=== PATIENT | female | born 1950 | race Caucasian/White ===

== ENCOUNTER 2016-09-29 14:47 | Inpatient (IN) | payer MEDICAID, MEDICARE ==
[~2016-09-29] VITALS: Ht 167.6 cm; Wt 113.0 kg
[2016-09-29 15:36] LABS: *BILIRUBIN,URIN NEGATIVE (NEGATIVE); *BLOOD, URINE 1+ (NEGATIVE); *CLARITY,URINE CLOUDY (CLEAR); *COLOR,URINE YELLOW (YELLOW); *KETONES,URINE NEGATIVE (NEGATIVE); *PROTEIN,URINE NEGATIVE (NEGATIVE); *UROBILINOGEN,URINE 0.2 E.U./dl (NORMAL); BASOPHILS % (AUTO) 0.7 % (0.0-2.0); EOSINOPHILS # (AUTO) 0.3 K/uL (0.0-0.7); EOSINOPHILS % (AUTO) 5.3 % (0.0-7.0); HEMATOCRIT 40.9 % (37-47); HEMOGLOBIN 13.3 G/DL (12.0-16.0); LEUKOCYTE ESTERASE ,URINE 1+ (NEGATIVE); LYMPHOCYTES # (AUTO) 2.4 K/UL (0.8-4.8); LYMPHOCYTES % (AUTO) 38.1 % (20.5-51.5); MEAN CORPUSCULAR HEMOGLOBIN 26.3 UUG (27.0-31.0); MEAN CORPUSCULAR HGB CONC 32 g/dL (32.0-37.0); MONOCYTES # (AUTO) 0.3 K/UL (0.1-1.30); MONOCYTES % (AUTO) 5.1 % (0.0-11.0); NEUTROPHILS # (AUTO) 3.4 K/UL (1.8-8.9); NEUTROPHILS % (AUTO) 50.8 % (38.5-71.5); NITRITE, URINE POSITIVE (NEGATIVE); PLATELET COUNT (AUTO) 254 K/UL (150-450); RED BLOOD CELL COUNT(AUTO) 5.05 MIL/UL (4.2-5.4); UGLUCOSE NEGATIVE (NEGATIVE); WHITE BLOOD COUNT (AUTO) 6.4 K/UL (4.0-11.2)
[2016-09-29 15:42] LABS: CREATININE 0.9 mg/dL (0.6-1.3); POTASSIUM 3.7 mmol/L (3.5-5.1)
[2016-09-29 15:43] LABS: BACTERIA,URINE MODERATE /HPF (NONE SEEN); SQUAMOUS EPITHELIAL CELL,UR MODERATE /HPF (NONE SEEN)
[2016-09-29] MEDS ORDERED: LEVOFLOXACIN 750 MG/D5W 150 ML PIGGYBACK IV ONE (15:45)
[2016-09-29 15:48] LABS: BILIRUBIN,DIRECT 0.1 mg/dL (0.0-0.2); BILIRUBIN,TOTAL 0.4 mg/dL (0.2-1.0); TOTAL PROTEIN, SERUM 7.8 g/dL (6.4-8.2)
[2016-09-29] MEDS ORDERED: ATOR20TA PO (15:51)
[2016-09-29] MEDS ORDERED: PANT40TA4 PO (15:51)
[2016-09-29] MEDS ORDERED: MAG30ORA GT (15:51)
[2016-09-29] MEDS ORDERED: ARIP30TA3 PO (15:51)
[2016-09-29] MEDS ORDERED: LORA1TAB PO (15:51)
[2016-09-29] MEDS ORDERED: SERT50TA PO (15:51)
[2016-09-29] MEDS ORDERED: ACET-2154 PO (15:51)
[2016-09-29] MEDS ORDERED: TEMA15CA5 PO (15:51)
[2016-09-29] MEDS ORDERED: MULT1TAB73 PO (15:51)
[2016-09-29] MEDS ORDERED: LEVO150T8 PO (15:51)
[2016-09-29] MEDS ORDERED: IBUP-1953 PO (15:51)
[2016-09-29] MEDS ORDERED: PROP10TA10 PO (15:51)
[2016-09-29] MEDS ORDERED: HYDR-3326 PO (15:51)
[2016-09-29] MEDS ORDERED: OXYB5TAB11 PO (15:51)
[2016-09-29] MEDS ORDERED: TRAZ-144 PO (15:51)
[2016-09-29] MEDS ORDERED: CLON2TAB4 PO (15:51)
[2016-09-29] MEDS ORDERED: ASPI81TA31 PO (15:51)
[2016-09-29] MEDS ORDERED: MAGN400O6 PO (15:51)
[2016-09-29 15:55] LABS: THYROID STIMULATING HORMONE 0.106 mIU/mL (0.358-3.740)
--- NOTE | 2016-09-29 16:11 | NUR ---
PT IS IN ROOM #1B. DR CAMPUZANO EVALUATED THE PT.
[2016-09-29] MEDS ORDERED: LEVOFLOXACIN 750MG/D5W 150 ML IV ONE (16:32)
--- NOTE | 2016-09-29 16:59 | NUR ---
REPORT WAS GIVEN TO SIMIN M/S. PT WAS TRANSFERD TO M/S ROOM #217.
--- NOTE | 2016-09-29 17:00 | NUR ---
RECEIVED PATIENT FOR ADMISSION 66 YEARS OLD FEMALE FROM ED WITH DX OF UTI WITH A DOSE OF LEVAQUIN INFUSING TO HER RIGHT WRIST CONNECTED TO THE PUMP.PATIENT IS ALERT AND ORIENTED ABLE TO MAKE NEEDS KNOWN PARTICIPATED WITH HIS ADMISSION QUESTIONS.ON ROOM AIR WITH NO SHORTNESS OF BREATH.PATIENT ORIENTED TO ROOM AND FACILITY PROTOCOL CALLED AND NOTIFIED DR DENT THAT PATIENT IS HERE AND HE STATED TO PLACE PATIENT ON TELEMETRY.
[2016-09-29 18:00] VITALS: BP 150/68
--- NOTE | 2016-09-29 18:52 | NUR ---
DR DENT HERE TO SEE PATIENT INFORMED HIM THE PATIENTS IV CAME OUT AND PATIENT STATED DOES NOT KNOW HOW AND BASED ON THE ED REPORT PATIENT IS A VERY HARD STICK AND HE STATED TO INSERT A MIDLINE ENDORSED.
[2016-09-29] MEDS ORDERED: TEMAZEPAM 15 MG CAPSULE PO PRN (19:30)
[2016-09-29] MEDS ORDERED: MAGNESIUM HYDROXIDE 30 ML LIQUID UDC PO PRN (19:30)
[2016-09-29] MEDS ORDERED: FUROSEMIDE 20 MG/2 ML VIAL IV ONE (19:45)
[2016-09-29] MEDS ORDERED: ONDANSETRON 4 MG/2 ML VIAL IV PRN (19:45)
--- NOTE | 2016-09-29 20:00 | NUR ---
Patient in bed pleasantly confused, applying make up. On Azactam IV antibiotic but patient has no IV access. Inserted peripheral IV line to her right hand w/ A22 gauge. Sinus rhythm on the monitor
[2016-09-29] MEDS: DOCUSATE SODIUM 100 MG CAPSULE PO SCH (20:20)
[2016-09-29] MEDS: Z GUARD REMEDY PASTE 57 GM TUBE TOP SCH (20:20)
[2016-09-29] MEDS: ARIPIPRAZOLE 10 MG TABLET PO SCH (20:20)
[2016-09-29] MEDS: ATORVASTATIN 20 MG TABLET PO SCH (20:20)
[2016-09-29] MEDS: MORPHINE SULFATE 2 MG/1 ML DISP.SYRIN IV PRN (20:20)
[2016-09-29] MEDS: TRAZODONE 50 MG TABLET PO SCH (20:22)
[2016-09-29 20:28] VITALS: BP 144/73
--- NOTE | 2016-09-29 22:00 | NUR ---
c/o right knee pain 8/10 pain level. Medicated w/ Morphine 2mg IVP & monitored. Effective result noted. Kept comfortable.
[2016-09-29] MEDS: PROPRANOLOL HCL 10 MG TABLET PO SCH (23:05)
[2016-09-29] MEDS: AZTREONAM 1 G in IV NORMAL SALINE 50 ML IV SCH (23:06)
[2016-09-30 00:29] VITALS: BP 126/55
[2016-09-30] MEDS: ACETAMINOPHEN 325 MG TABLET PO PRN (00:43)
[2016-09-30 04:00] VITALS: BP 122/63
[2016-09-30] MEDS: AZTREONAM 1 G in IV NORMAL SALINE 50 ML IV SCH ×3 (06:10→21:23)
[2016-09-30] MEDS: PANTOPRAZOLE SODIUM 40 MG TABLET.DR PO SCH (06:11)
[2016-09-30] MEDS: LEVOTHYROXINE SODIUM 100 MCG TABLET PO SCH (06:11)
[2016-09-30] MEDS: PROPRANOLOL HCL 10 MG TABLET PO SCH ×3 (06:11→21:22)
--- NOTE | 2016-09-30 06:37 | NUR ---
No further change, cooperative w/ staff, patient ate well, tolerated night snacks & requesting her early breakfast. Sinus rhythm on the monitor. Vital signs are stable.
[2016-09-30 06:53] LABS: BASOPHILS % (AUTO) 0.7 % (0.0-2.0); EOSINOPHILS # (AUTO) 0.4 K/uL (0.0-0.7); EOSINOPHILS % (AUTO) 5.7 % (0.0-7.0); HEMATOCRIT 40.2 % (37-47); HEMOGLOBIN 12.9 G/DL (12.0-16.0); LYMPHOCYTES # (AUTO) 2.6 K/UL (0.8-4.8); LYMPHOCYTES % (AUTO) 38.2 % (20.5-51.5); MEAN CORPUSCULAR HEMOGLOBIN 25.9 UUG (27.0-31.0); MEAN CORPUSCULAR HGB CONC 32 g/dL (32.0-37.0); MEAN CORPUSCULAR VOLUME 80.5 FL (81.0-99.0); MONOCYTES # (AUTO) 0.5 K/UL (0.1-1.30); MONOCYTES % (AUTO) 6.7 % (0.0-11.0); NEUTROPHILS # (AUTO) 3.4 K/UL (1.8-8.9); NEUTROPHILS % (AUTO) 48.7 % (38.5-71.5); PLATELET COUNT (AUTO) 238 K/UL (150-450); RED BLOOD CELL COUNT(AUTO) 4.99 MIL/UL (4.2-5.4); WHITE BLOOD COUNT (AUTO) 6.9 K/UL (4.0-11.2)
[2016-09-30 07:36] LABS: BILIRUBIN,TOTAL 0.3 mg/dL (0.2-1.0); CREATININE 1.1 mg/dL (0.6-1.3); MAGNESIUM 1.7 mg/dL (1.8-2.4); PHOSPHOROUS 4.3 mg/dL (2.5-4.9); POTASSIUM 3.1 mmol/L (3.5-5.1); TOTAL PROTEIN, SERUM 7.5 g/dL (6.4-8.2)
[2016-09-30] MEDS: OXYBUTYNIN CHLORIDE 5 MG TABLET PO SCH ×2 (08:37→16:52)
[2016-09-30] MEDS: ASPIRIN 81 MG TAB.CHEW PO SCH (08:37)
[2016-09-30] MEDS: MULTIVITAMINS,THERAPEUTIC TABLET PO SCH (08:37)
[2016-09-30] MEDS: Z GUARD REMEDY PASTE 57 GM TUBE TOP SCH ×2 (08:40→21:23)
[2016-09-30] MEDS: FUROSEMIDE 20 MG/2 ML VIAL IV SCH (08:40)
[2016-09-30] MEDS: MORPHINE SULFATE 2 MG/1 ML DISP.SYRIN IV PRN ×3 (08:41→19:43)
--- NOTE | 2016-09-30 08:55 | NUR ---
PT AWAKE, ALERT, AND ORIENTED. EATING BREAKFAST, REQUESTED PAIN MEDICATION FOR 10/10 PAIN OF RIGHT KNEE. ALL MORNING MEDICATIONS PROVIDED ORDERED ALONG WITH PAIN MEDICATION NEEDED. IV INTACT. CALL LIGHT IN REACH. WILL CONTINUE TO MONITOR.
[2016-09-30] MEDS ORDERED: POTASSIUM CHLORIDE 20 MEQ TAB.PRT.SR PO ONE (09:00)
[2016-09-30] MEDS ORDERED: SERTRALINE HCL 50 MG TABLET PO SCH (09:00)
[2016-09-30] MEDS ORDERED: MAGNESIUM OXIDE 400 MG TABLET PO ONE (09:00)
[2016-09-30] MEDS ORDERED: Medication Not On Formulary EA (Multivitamins (Multivitamin) 1 TAB) PO SCH (09:00)
[2016-09-30] MEDS ORDERED: POTASSIUM CHLORIDE 20 MEQ POWDER PACKET PO ONE (09:15)
[2016-09-30 11:46] VITALS: BP 124/68
[2016-09-30] MEDS: NICOTINE 14 MG/24HR PATCH TD SCH (12:07)
[2016-09-30] MEDS: FLUOXETINE HCL 10 MG CAPSULE PO SCH (12:07)
[2016-09-30 15:33] VITALS: BP 120/70
[2016-09-30] MEDS: HYDROCODONE/APAP 5-325MG TABLET PO PRN (16:53)
--- NOTE | 2016-09-30 18:36 | NUR ---
PT HAS NO CHANGES NOTED THOUGH OUT SHIFT. ALL SAFETY AND COMFORT MEASURES ATTENDED TO.
[2016-09-30 19:00] VITALS: BP 123/68
[2016-09-30] MEDS: ATORVASTATIN 20 MG TABLET PO SCH (21:21)
[2016-09-30] MEDS: ARIPIPRAZOLE 10 MG TABLET PO SCH (21:22)
[2016-09-30] MEDS: TRAZODONE 50 MG TABLET PO SCH (21:22)
[2016-09-30] MEDS: DOCUSATE SODIUM 100 MG CAPSULE PO SCH (21:22)
--- NOTE | 2016-09-30 21:42 | NUR ---
PT RECEIVED AWAKE AND SLIGHTLY RESTLESS. STILL C/O RIGHT KNEE PAIN. VITAL SIGNS STABLE, NO SIGNS OF DISTRESS NOTED. MORPHINE 2MG IVP ADMINISTERED FOR PAIN AND MONITORED. TOLERATED NIGHT MEDICATION AND IV ANTIBIOTIC.
[2016-10-01] MEDS: MORPHINE SULFATE 2 MG/1 ML DISP.SYRIN IV PRN ×3 (00:31→10:46)
[2016-10-01 05:00] VITALS: BP 141/76
[2016-10-01] MEDS: PROPRANOLOL HCL 10 MG TABLET PO SCH ×3 (06:16→21:46)
[2016-10-01] MEDS: LEVOTHYROXINE SODIUM 100 MCG TABLET PO SCH (06:16)
[2016-10-01] MEDS: AZTREONAM 1 G in IV NORMAL SALINE 50 ML IV SCH ×3 (06:17→21:34)
--- NOTE | 2016-10-01 06:58 | NUR ---
Pt in bed resting, asleep. All routine medications given and well tolerated. IV patent and intact. C/O pain on right knee, medicated with Morphine 2mg IVP and tolerated well. All vital signs WNL.
--- NOTE | 2016-10-01 07:52 | NUR ---
PT RECEIVED SLEEPING . VITAL SIGNS STABLE, NO SIGNS OF DISTRESS NOTED. NO C/O PAIN NOTED
[2016-10-01] MEDS: FUROSEMIDE 20 MG/2 ML VIAL IV SCH (08:18)
[2016-10-01] MEDS: PANTOPRAZOLE SODIUM 40 MG TABLET.DR PO SCH (08:19)
[2016-10-01] MEDS: Z GUARD REMEDY PASTE 57 GM TUBE TOP SCH ×2 (08:19→21:26)
[2016-10-01] MEDS: MULTIVITAMINS,THERAPEUTIC TABLET PO SCH (08:19)
[2016-10-01] MEDS: FLUOXETINE HCL 10 MG CAPSULE PO SCH (08:19)
[2016-10-01] MEDS: NICOTINE 14 MG/24HR PATCH TD SCH (08:19)
[2016-10-01] MEDS: ASPIRIN 81 MG TAB.CHEW PO SCH (08:19)
[2016-10-01] MEDS: OXYBUTYNIN CHLORIDE 5 MG TABLET PO SCH ×2 (08:19→16:13)
[2016-10-01 13:32] VITALS: BP 96/49
[2016-10-01] MEDS: HYDROCODONE/APAP 5-325MG TABLET PO PRN ×2 (14:20→18:16)
[2016-10-01 16:16] VITALS: BP 101/45
--- NOTE | 2016-10-01 18:09 | NUR ---
PT HAS NO CHANGES NOTED THOUGH OUT SHIFT. ALL SAFETY AND COMFORT MEASURES ATTENDED TO.
--- NOTE | 2016-10-01 18:17 | NUR ---
PT C/O PAIN PER DR FILIPE HAY 5/325 PO GIVEN
[2016-10-01 19:50] VITALS: BP 98/53
[2016-10-01] MEDS: TRAZODONE 50 MG TABLET PO SCH (21:00)
[2016-10-01] MEDS: DOCUSATE SODIUM 100 MG CAPSULE PO SCH (21:18)
[2016-10-01] MEDS: ARIPIPRAZOLE 10 MG TABLET PO SCH (21:18)
[2016-10-01] MEDS: ATORVASTATIN 20 MG TABLET PO SCH (21:19)
[2016-10-01] MEDS: ZOLPIDEM 5 MG TABLET PO PRN (21:19)
[2016-10-01] MEDS: ACETAMINOPHEN 325 MG TABLET PO PRN (21:21)
[2016-10-02] MEDS: MORPHINE SULFATE 2 MG/1 ML DISP.SYRIN IV PRN ×2 (00:06→04:36)
--- NOTE | 2016-10-02 01:06 | NUR ---
RECEIVED PATIENT UNCOMFORTABLE IN BED. SHE WAS HAVING HALLUCINATION EARLY LAST NIGHT SAYING THERE WAS A GIRL IN THE ROOM TELLING HER SHE'S A PROSTITUTE, REDIRECT TO REALITY AND ADVISED NOT TO GET UPSET. REFUSED TRAZODONE, GIVEN AMBIEN INSTEAD REQUESTED BY PATIENT.
--- NOTE | 2016-10-02 04:40 | NUR ---
patient complaint of virgil knee pain 10/18, given another dose of iv morphine at 440 am.
[2016-10-02 05:08] VITALS: BP 124/58
[2016-10-02] MEDS: AZTREONAM 1 G in IV NORMAL SALINE 50 ML IV SCH ×2 (05:35→14:00)
[2016-10-02] MEDS: PROPRANOLOL HCL 10 MG TABLET PO SCH ×3 (05:38→21:07)
--- NOTE | 2016-10-02 05:40 | NUR ---
O2 SAT IS 100% NO SIGNS OF SOB OR RESPIRATORY DISTRESS, DISCONTINUED O2 SUPPORT.
[2016-10-02] MEDS: LEVOTHYROXINE SODIUM 100 MCG TABLET PO SCH (06:06)
--- NOTE | 2016-10-02 07:45 | NUR ---
PT RECEIVED AWAKE AND SLIGHTLY RESTLESS. STILL C/O RIGHT KNEE PAIN. VITAL SIGNS STABLE, NO SIGNS OF DISTRESS NOTED.
[2016-10-02] MEDS: NICOTINE 14 MG/24HR PATCH TD SCH (08:03)
[2016-10-02] MEDS: OXYBUTYNIN CHLORIDE 5 MG TABLET PO SCH ×2 (08:04→16:04)
[2016-10-02] MEDS: MULTIVITAMINS,THERAPEUTIC TABLET PO SCH (08:04)
[2016-10-02] MEDS: PANTOPRAZOLE SODIUM 40 MG TABLET.DR PO SCH (08:04)
[2016-10-02] MEDS: ASPIRIN 81 MG TAB.CHEW PO SCH (08:04)
[2016-10-02] MEDS: FLUOXETINE HCL 10 MG CAPSULE PO SCH (08:04)
[2016-10-02] MEDS: FUROSEMIDE 20 MG/2 ML VIAL IV SCH (08:06)
[2016-10-02] MEDS: Z GUARD REMEDY PASTE 57 GM TUBE TOP SCH ×2 (08:06→20:17)
[2016-10-02] MEDS: HYDROCODONE/APAP 5-325MG TABLET PO PRN (10:54)
[2016-10-02 11:04] VITALS: BP 98/53
[2016-10-02] MEDS ORDERED: TRIAMCINOLONE ACETONIDE 40 MG/1 ML VIAL IM ONE (12:15)
[2016-10-02] MEDS ORDERED: LIDOCAINE HCL 1% 20 ML VIAL IJ PRN (12:15)
[2016-10-02] MEDS: MEPERIDINE 50 MG/1 ML DISP.SYRIN IM PRN (14:08)
[2016-10-02 15:19] VITALS: BP 115/69
[2016-10-02] MEDS ORDERED: DOSING PER PHARMACY-AMIKACIN IV XX PRN (17:00)
[2016-10-02] MEDS ORDERED: LEVOFLOXACIN 500 MG TABLET PO SCH (17:00)
--- NOTE | 2016-10-02 17:00 | NUR ---
pt seen by dr Ronaldo Kelly right knee aspiration procedure done by dr Ronaldo Kelly.pt tolerated the procedure well.v/s are stable
[2016-10-02] MEDS: BUPIVACAINE 0.25% 30 ML VIAL INJ PRN (17:11)
--- NOTE | 2016-10-02 17:28 | NUR ---
PT HAS NO CHANGES NOTED THOUGH OUT SHIFT. ALL SAFETY AND COMFORT MEASURES ATTENDED TO.
--- NOTE | 2016-10-02 17:32 | NUR ---
CLINICAL PHARMACY NOTE:AMIKACIN DOSING Request for Amikacin dosing on 66 y/o female 66 y/o 5'6" 246lbs for UTI Temp 98.2 BUN 10 Scr 1.1 WBC 6.9 urine culture ESBL Proteus Mirabilis sensitive to Amikacin and Unasyn and Klebsiella pneumoniae sensitive to imipenem, Levaquin, nitrofurantoin, gentamicin, Bactrim. On Levaquin Start Amikacin 400mg ivpb q12h estimated peak 22.8 trough 3.9. Peak and trough levels ordered around 4th dose. Will continue to monitor
[2016-10-02] MEDS: AMIKACIN 500 MG in IV DEXTROSE 5% 100 ML IV SCH (18:01)
[2016-10-02] MEDS: ACETAMINOPHEN 325 MG TABLET PO PRN (19:41)
[2016-10-02 20:00] VITALS: BP 124/55
[2016-10-02] MEDS: DOCUSATE SODIUM 100 MG CAPSULE PO SCH ×2 (20:14→20:20)
[2016-10-02] MEDS: ARIPIPRAZOLE 10 MG TABLET PO SCH (20:15)
[2016-10-02] MEDS: TRAZODONE 50 MG TABLET PO SCH (20:15)
[2016-10-02] MEDS: ATORVASTATIN 20 MG TABLET PO SCH (20:15)
[2016-10-02] MEDS: ZOLPIDEM 5 MG TABLET PO PRN (21:05)
[2016-10-03] MEDS: MORPHINE SULFATE 2 MG/1 ML DISP.SYRIN IV PRN ×3 (00:50→17:45)
[2016-10-03 04:55] VITALS: BP 122/65
[2016-10-03] MEDS: PROPRANOLOL HCL 10 MG TABLET PO SCH ×2 (05:05→14:00)
[2016-10-03] MEDS: AMIKACIN 500 MG in IV DEXTROSE 5% 100 ML IV SCH (05:06)
[2016-10-03] MEDS: HYDROCODONE/APAP 5-325MG TABLET PO PRN (05:48)
[2016-10-03] MEDS: LEVOTHYROXINE SODIUM 100 MCG TABLET PO SCH (06:37)
--- NOTE | 2016-10-03 06:52 | NUR ---
PATIENT SLEPT WELL, IN NO ACUTE DISTRESS. NO SIGNIFICANT CHANGE OF CONDITION THROUGHOUT THE SHIFT. CALL LIGHT WITHIN REACH, BED ALARM ON. WILL CONTINUE TO MONITOR.
[2016-10-03] MEDS: ASPIRIN 81 MG TAB.CHEW PO SCH (08:40)
[2016-10-03] MEDS: PANTOPRAZOLE SODIUM 40 MG TABLET.DR PO SCH (08:40)
[2016-10-03] MEDS: FLUOXETINE HCL 10 MG CAPSULE PO SCH (08:40)
[2016-10-03] MEDS: MULTIVITAMINS,THERAPEUTIC TABLET PO SCH (08:40)
[2016-10-03] MEDS: FUROSEMIDE 20 MG/2 ML VIAL IV SCH (08:40)
[2016-10-03] MEDS: OXYBUTYNIN CHLORIDE 5 MG TABLET PO SCH ×2 (08:40→17:42)
[2016-10-03] MEDS: Z GUARD REMEDY PASTE 57 GM TUBE TOP SCH (08:41)
[2016-10-03] MEDS: NICOTINE 14 MG/24HR PATCH TD SCH (08:41)
[2016-10-03 11:23] VITALS: BP 107/53
[2016-10-03] MEDS: BUPIVACAINE 0.25% 30 ML VIAL INJ PRN (12:20)
[2016-10-03] MEDS ORDERED: TRAZ-144 PO (15:00)
[2016-10-03] MEDS ORDERED: TEMA15CA5 PO (15:00)
[2016-10-03] MEDS ORDERED: LEVO100T10 PO (15:00)
[2016-10-03] MEDS ORDERED: FURO-152 PO (15:00)
[2016-10-03] MEDS ORDERED: NICO1PAT25 TD (15:00)
[2016-10-03] MEDS ORDERED: MAGN400O6 PO (15:00)
[2016-10-03] MEDS ORDERED: [UNRECOGNIZED DRUG - CODE] IM (15:00)
[2016-10-03] MEDS ORDERED: MEROPENEM 1 G in IV NORMAL SALINE 100 ML IV SCH (15:00)
[2016-10-03] MEDS ORDERED: DOCU100C36 PO (15:00)
[2016-10-03] MEDS ORDERED: LACT1CAP57 PO (15:00)
[2016-10-03] MEDS ORDERED: MENT71OI TOP (15:00)
[2016-10-03] MEDS ORDERED: MULT-24 PO (15:00)
[2016-10-03] MEDS ORDERED: PROP10TA29 PO (15:00)
[2016-10-03] MEDS ORDERED: FLUO-119 PO (15:00)
[2016-10-03] MEDS ORDERED: PANT40TA2 PO (15:00)
[2016-10-03] MEDS ORDERED: ARIP10TA9 PO (15:00)
[2016-10-03] MEDS ORDERED: POTA10CA43 PO (15:04)
[2016-10-03] MEDS ORDERED: RXAMI IV (15:06)
[2016-10-03] MEDS ORDERED: MERO1VIA IV (15:06)
[2016-10-03] MEDS ORDERED: ALBU2.5V38 NEB (15:12)
[2016-10-03] MEDS ORDERED: FLUT1DIS28 IH (15:12)
[2016-10-03] MEDS ORDERED: CALC-555 PO (15:22)
[2016-10-03 15:23] VITALS: BP 127/58
--- NOTE | 2016-10-03 19:30 | NUR ---
Pt received in bed, awake. v/s stable. In no acute distress. No co pain at this time. Safety measures implemented. Call light within reach. Awaiting d/c. Will continue to monitor.
[2016-10-03] MEDS: MEPERIDINE 50 MG/1 ML DISP.SYRIN IM PRN (19:32)
--- NOTE | 2016-10-03 19:50 | NUR ---
Pt discharged to [facility]. Pt in stable condition. In no acute distress. IV not d/c per request of RN at [facility] facility. PT v/s stable at d/c. BP 135/51.
[2016-10-03 19:52] VITALS: BP 135/51
[2016-10-03] MEDS ORDERED: LACTOBACILLUS RHAMNOSUS GG 1 EACH CAPSULE PO SCH (21:00)
== END 2016-10-03 19:57 | DRG 689 ==
LOC: ER 14:47 → MED 16:58 → TELE 17:49 → MED 09-30 11:40
PROVIDERS: ADMIT Internal Medicine; ATTEND Internal Medicine
PROC: 0S9C30Z Drainage of Right Knee Joint with Drainage Device, Percutaneous Approach (ICD-10-PCS; principal; 2016-10-02)
DX: N39.0 Urinary tract infection, site not specified (principal); I50.33 Acute on chronic diastolic (congestive) heart failure; E88.81 Metabolic syndrome and other insulin resistance; D68.59 Other primary thrombophilia; E66.01 Morbid (severe) obesity due to excess calories; M41.9 Scoliosis, unspecified; F20.0 Paranoid schizophrenia; I11.0 Hypertensive heart disease with heart failure; E03.9 Hypothyroidism, unspecified; M25.461 Effusion, right knee; S89.81XA Other specified injuries of right lower leg, initial encounter; X58.XXXA Exposure to other specified factors, initial encounter; Y92.099 Unspecified place in other non-institutional residence as the place of occurrence of the external cause; R26.2 Difficulty in walking, not elsewhere classified; F17.210 Nicotine dependence, cigarettes, uncomplicated; Z96.653 Presence of artificial knee joint, bilateral; I25.2 Old myocardial infarction; H26.9 Unspecified cataract; D17.1 Benign lipomatous neoplasm of skin and subcutaneous tissue of trunk; G89.29 Other chronic pain; Z86.73 Personal history of transient ischemic attack (TIA), and cerebral infarction without residual deficits; Z99.3 Dependence on wheelchair; M47.894 Other spondylosis, thoracic region; K21.9 Gastro-esophageal reflux disease without esophagitis; Z88.0 Allergy status to penicillin; Z88.8 Allergy status to other drugs, medicaments and biological substances; F25.9 Schizoaffective disorder, unspecified; B96.1 Klebsiella pneumoniae [K. pneumoniae] as the cause of diseases classified elsewhere; Z16.11 Resistance to penicillins; L68.0 Hirsutism; I25.10 Atherosclerotic heart disease of native coronary artery without angina pectoris; E78.5 Hyperlipidemia, unspecified; E05.90 Thyrotoxicosis, unspecified without thyrotoxic crisis or storm; R62.7 Adult failure to thrive; M85.80 Other specified disorders of bone density and structure, unspecified site; Z79.899 Other long term (current) drug therapy; Z71.3 Dietary counseling and surveillance; Z68.39 Body mass index [BMI] 39.0-39.9, adult; Z79.82 Long term (current) use of aspirin; J44.9 Chronic obstructive pulmonary disease, unspecified
CPT/HCPCS: 36415; 70030-TC; 71010; 72072; 72110; 82306; 83550; 83605; 83735; 84100; 84443; 85025; 85730; 87040; 87070; 87077; 87086; 93005; 93307; A4663; J0278; J1940; J1956; J2175; J2185; J2270; J2405; J3301; J3490; J7050; J7060